=== PATIENT | female | born 1965 | race Caucasian/White ===

== ENCOUNTER 2020-04-23 09:49 | Inpatient (IN) ==
--- NOTE | 2020-04-13 18:05 | History and Physical Report ---
DATE OF ADMISSION: 04/23/2020 CHIEF COMPLAINT: Large pelvic mass, episodes of postmenopausal bleeding. HISTORY OF PRESENT ILLNESS: The patient is a 54-year-old 2, para 2. General health is good. She stopped having regular periods about 4 years ago and recently has experienced several episodes of heavy bleeding. She was seen with these complaints in my office and she had an obviously enlarged fibroid uterus. Her FSH numbers indicated she was in early menopause. Her hemoglobin was good. Her pelvic exam revealed a 14-15 week size uterus. Ultrasound revealed 16.8 cm x 8.7 cm x 10.1 cm multiple fibroid uterus, endometrial stripe could not be visualized. Presently being scheduled for a total abdominal hysterectomy and bilateral salpingo-oophorectomy. ALLERGIES: No known drug allergies. PAST SURGICAL HISTORY: She has had 2 C-sections. PAST MEDICAL HISTORY: She has seasonal allergies. SOCIAL HISTORY: She was a smoker, quit 13 years ago. No history of excessive alcohol intake. She is employed. FAMILY HISTORY: She has 2 children in good health. Mother at 84, complications of dementia. Father at age 57 of unknown causes. Three brothers and three sisters. One brother in his 50s with some type of stomach problem. One sister 60 and is on dialysis. REVIEW OF SYSTEMS: HEAD: No symptoms of frequent or severe headaches. EYES: No symptoms of blurred vision or double vision. EARS: No symptoms of frequent ear infection or difficulty hearing. NOSE: No symptoms of frequent nosebleeds or difficulty breathing through her nose. PHYSICAL EXAMINATION: GENERAL: Well-developed, well-nourished 54-year-old white female, alert, oriented x3 and cooperative, in no acute distress, appears her stated age. EYES: Conjunctivae are pink. Sclerae white, no evidence of jaundice. EARS, NOSE AND THROAT: Had normal light reflex bilaterally. NOSE: Had normal mucosa. Septum is midline. There were no polyps. THROAT: No erythema or evidence of infection. Teeth are in good state of repair. HEAD: Normocephalic, normal distribution of hair. NECK: Supple. Trachea midline. Thyroid is not enlarged. There is no adenopathy appreciated. Both carotids are of good intensity. CHEST: Clear to auscultation and percussion. Wheezes, rales or rhonchi appreciated. BREASTS: Normal. ABDOMEN: Revealed a well-healed midline scar with a lot of puckering. PELVIC: Revealed a normal-appearing cervix. There was a 15-16 weeks firm mass in the pelvis consistent with multiple fibroids. MUSCULOSKELETAL: Revealed no calf tenderness. IMPRESSIONS OF THIS CASE: Status post section, history of seasonal allergies, postmenopausal bleeding, symptomatic fibroid uterus. [facility]
--- NOTE | 2020-04-19 09:04 | Anesthesiology Consultation ---
Date of Service April 19, 2020 Assessment & Plan (1) Encounter for pre-operative examination: COVID Status: As of 04/16 nurse assessment, patient denies travel to endemic area, known exposure/sick contacts, or symptoms of COVID19. Preoperative COVID19 testing completed 04/19 at [facility]. Patient very hypertensive on exam at [facility]. She is visibly anxious and tachycardic as well. No symptoms from hypertension (denies FERNANDEZ/blurred vision/seeing spots/dizziness). Case d/w Dr. Du. Patient's surgery is imminent, scheduled for 04/23. Patient does not have an established primary care provider, and even if she were to be started on anti-hypertensives between now and surgery, likely would have little effect in such a short time. Will attempt to schedule patient with a PCP but if not able to do so prior to surgery, OK to proceed and will manage hypertension perioperatively. Part of patient's HTN seems anxiety-related, and much of her anxiety is re: being alone AM DOS as Japanese is her second language. Spoke to Eliu in [facility] -- OK for family member to accompany patient DOS. Patient made aware, and OR notified. Patient established care with PCP on 04/20 ([facility]). HTN felt most due to white coat syndrome. Patient to purchase BP cuff and track BP at home and follow up with PCP at a later date. Chart Review Chart Review: Acceptable Risk for Surgery and Patient seen in Pre Admission Testing Teaching & Discussion Instructed NPO after midnight before surgery, except medications with 15 cc of water. Medication instructions provided according to the [facility] guidelines. History Surgery Operation Date: 04/23/20 11:25 Proposed Procedures p Total Abdominal Hysterectomy, Bilateral Salpingo Oophorectomy - Jay Zuniga MD Height/Weight Height: 5 ft 1 in Weight: 60.4 kg Allergies Allergy/AdvReac Type Severity Reaction Status Date / Time No Known Allergies Allergy Verified 04/14/20 16:07 Medications Home Medications Medication Instructions Recorded Confirmed Last Taken No Known Home Medications 04/14/20 04/20/20 Unknown Past Medical History Medical History Essential (primary) hypertension Significantly hypertensive on exam at [facility], but patient is visibly anxious. Arranged for patient to establish care with a PCP prior to surgery--no antihypertensives initiated, HTN felt mostly 2/2 'white coat HTN.' Patient to track BP at home and f/u with PCP after surgery. No known health problems Seasonal allergies Exercise / Class Metabolic Activity II 4-5 Yardwork/Stairs/Walk up hill Past Family History Family History (Updated 04/20/20 @ 14:56 by Bindu Pitt) Family/Other No problems noted. Brother No problems noted. Sister Diabetes Kidney disease Denies family history of Ovarian cancer Prostate cancer Myocardial infarction Breast cancer Colorectal cancer Past Surgical History Surgical History (Updated 04/20/20 @ 14:55 by Bindu Pitt) History of section X 2 1989, 1998 Past Anesthesia History No Hx of Anesthesia Complications and No Family Hx of Anesthesia Complications History of PONV No Hx of PONV and No Hx of Motion Sickness Social History Smoking Status: Former smoker Do You Dip or Chew Tobacco: No Smoking End Date: QUIT 2006 Hx Alcohol Use: No Hx Substance Use: No Review of Systems Pt denies any recent chest pain, shortness of breath, palpitations, cough, fever or URI. Physical Exam Vital Signs BP: 191/127 pt states she is very anxious. Rpt 5 mins later 194/112. Pt asymptomatic. P: 103bpm SPO2: 98% RA T: 98.4F R: 16 ENMT Mouth: + dental bridge (upper front ~ 8 teeth), + poor dentition (some broken, some missing) and + chipped teeth (several broken teeth) Thyromental Distance: > or= 3.5 Finger Breadths (4) Mallampati Class: III Neck normal visual inspection; neck extension not limited Respiratory normal respiratory effort Auscultation: lungs clear to auscultation bilaterally Cardiovascular Rate/Rhythm: regular rhythm and + tachycardic Heart Sounds: no murmur Extremities: no edema Testing Laboratory Results 04/19/20 09:33 04/19/20 09:18 PT 10.3 Seconds (9.0-12.0) 04/19/20 09:33 INR 1.0 (0.9-1.1) 04/19/20 09:33 APTT 27.9 Seconds (21.0-31.0) 04/19/20 09:33 Blood Type B Positive 04/19/20 09:33 Antibody Screen NEGATIVE 04/19/20 09:33 Electrocardiogram Date: 04/19/20 Findings: + SUKHJINDER @ (76bpm)
[2020-04-19 10:12] LABS: Basophils # (auto) 0.06 K/uL (0-0.2); Eosinophils # (auto) 0.27 K/uL (0-0.5); Eosinophils % (auto) 4.7 %; Hematocrit (blood only) 43.5 % (37-47); Hemoglobin 14.6 g/dL (12.0-16.0); Immature Granulocytes # (auto) 0.01 K/uL (0.00-0.02); Immature Granulocytes % (auto) 0.2 %; Lymphocytes # (auto) 2.44 K/uL (1.2-3.4); Lymphocytes % (auto) 42.5 %; Mean Corpuscular Hemoglobin 28.1 pg (25-34); Mean Corpuscular Hgb Conc 33.6 g/dL (32-36); Mean Corpuscular Volume 83.7 fL (80-100); Mean Platelet Volume 10.3 fL (7.4-10.4); Monocytes # (auto) 0.29 K/uL (0.11-0.59); Monocytes % (auto) 5.1 %; Neutrophils # (auto) 2.67 K/uL (1.4-6.5); Neutrophils % (auto) 46.5 %; Platelet Count 232 K/uL (130-400); RDW Standard Deviation 38.9 fL (36.4-46.3); White Blood Count 5.74 K/uL (4.8-10.8)
[2020-04-19 10:19] LABS: BUN Creatinine Ratio 11.5 (10-20); Calcium 9.2 mg/dl (8.5-10.1); Creatinine Clr Calc Pharmacy 68.7 ml/min; Est GFR (Non-African American) 86.3; Potassium 3.7 mmol/L (3.5-5.1)
[2020-04-19 10:24] LABS: Partial Thromboplastin Time 27.9 Seconds (21.0-31.0); Prothrombin Time 10.3 Seconds (9.0-12.0)
--- NOTE | 2020-04-19 11:50 | Electrocardiogram Report ---
Test Reason : Blood Pressure : / mmHG Vent. Rate : 090 BPM Atrial Rate : 090 BPM P-R Int : 150 ms QRS Dur : 070 ms QT Int : 348 ms P-R-T Axes : 075 065 075 degrees QTc Int : 425 ms Normal sinus rhythm Normal ECG No previous ECGs available Confirmed by Terry Berry ([id number]) on 04/19/2020 11:50:05 AM Referred By: Jay Zuniga Confirmed By:Terry Berry
[~2020-04-23 09:49] MED LIST: LR 15ML/HR IV SCH; cefOXitin 2,000 MG in DEXTROSE 5% 50 ML IV SCH
--- NOTE | 2020-04-23 10:53 | History & Physical Bridge Note ---
Date of Service April 23, 2020 History & Physical Bridge Note I have examined the patient, reviewed the History & Physical and in the interval since the performance of the History & Physical I have noted the following changes of clinical significance: no changes noted
[2020-04-23] MEDS ORDERED: fentaNYL citrate 100 MCG/2 ML VIAL ONE (11:34)
[2020-04-23] MEDS ORDERED: ONDANSETRON INJ 2 MG/ML 2 ML VIAL ONE (11:34)
[2020-04-23] MEDS ORDERED: ROCURONIUM BROMIDE 10 MG/ML 5 ML VIAL IV ONE (11:34)
[2020-04-23] MEDS ORDERED: PROPOFOL IV EMULSION 10 MG/ML 20 ML VIAL IV ONE (11:34)
[2020-04-23] MEDS ORDERED: LIDOCAINE HCL 2% 2 ML VIAL/AMP(20MG/ML) INFIL ONE (11:34)
[2020-04-23] MEDS ORDERED: MIDAZOLAM HCL 1 MG/ML 2ML VIAL ONE (11:35)
[2020-04-23] MEDS ORDERED: MoRPHine SULFATE PF 1 MG/ML 10 ML AMP/VIAL ONE (11:53)
[2020-04-23] MEDS ORDERED: PROMETHAZINE HCL 12.5 MG in SODIUM CHLORIDE 0.9% 50 ML IV PRN (12:41)
[2020-04-23] MEDS ORDERED: LACTATED RINGER'S 500 ML IV PRN (12:41)
[2020-04-23] MEDS ORDERED: ONDANSETRON INJ 2 MG/ML 2 ML VIAL IV PRN (12:41)
[2020-04-23] MEDS ORDERED: MoRPHine SULFATE PF 1 MG/ML 10 ML AMP/VIAL INT SPINAL ONE (12:41)
[2020-04-23] MEDS ORDERED: NALOXONE HCL 0.4 MG/1 ML VIAL/CARP IV PRN (12:41)
[2020-04-23] MEDS ORDERED: NALBUPHINE HCL INJ 10 MG/ML AMP IV PRN (12:41)
[2020-04-23] MEDS ORDERED: NALOXONE HCL 0.08 MG in SYRINGE 1.8 ML IV PRN (12:41)
[2020-04-23] MEDS ORDERED: KETOROLAC 30 MG/ML VIAL IV PRN (12:41)
[2020-04-23] MEDS ORDERED: ePHEDrine sulfate 50 MG/ML AMP IV PRN (12:41)
[2020-04-23] MEDS ORDERED: NALOXONE HCL 1 MG in SODIUM CHLORIDE 0.9% 1000ML 1,000 ML IV PRN (12:41)
[2020-04-23] MEDS ORDERED: DiphenhydrAMINE HCL 50 MG/ML VIAL IV PRN (12:41)
[2020-04-23] MEDS ORDERED: PHENYLEPHRINE HCL 10 MG/ML VIAL ONE (12:43)
[2020-04-23] MEDS ORDERED: PHENYLEPHRINE 100MCG/ML 5ML SYR ONE (12:43)
[2020-04-23] MEDS ORDERED: DC INTRASPINAL MORPHINE SCH (12:45)
[2020-04-23] MEDS ORDERED: SODIUM CHLORIDE 0.9% 1000ML 1,000 ML IV SCH (12:45)
[2020-04-23] MEDS ORDERED: NO NARCOTICS OR SEDATIVES SCH (12:45)
[2020-04-23] MEDS ORDERED: DEXAMETHASONE SOD INJ 4 MG/ML VIAL ONE (12:46)
[2020-04-23] MEDS ORDERED: NEOSTIGMINE METHYLSULFATE 5 MG/5 ML SYR ONE (14:01)
[2020-04-23] MEDS ORDERED: GLYCOPYRROLATE 0.2 MG/ML VIAL ONE (14:01)
[2020-04-23] MEDS ORDERED: SENNA 8.6 MG TAB PO PRN (14:38)
[2020-04-23] MEDS ORDERED: bisacodyL 10 MG SUPP PR PRN (14:38)
[2020-04-23] MEDS ORDERED: MAGNESIUM HYDROXIDE SUSP 30 ML UDC PO PRN (14:38)
--- NOTE | 2020-04-23 14:38 | Post Operative Brief Note ---
Immediate Post Op Note v1 Date of Surgery April 23, 2020 Pre & Post Diagnosis Operation Date: 04/23/20 11:25 Pre-Op Diagnosis: Postmenopausal bleeding and symptomatic fibroid uterus. Post-Op Diagnosis: Postmenopausal bleeding and symptomatic fibroid uterus. I identified the patient and participated in the time-out.: Yes Procedure Operation Date: 04/23/20 11:25 Actual Procedures p Total Abdominal Hysterectomy, Bilateral Salpingo Oophorectomy(Not Applicable) - Jay Zuniga MD Surgeon Jay Zuniga MD Needle Grinder Dr. Corbett Estimated Blood Loss 100 Findings Consistent with Post-Op Diagnosis large fibroid uterus bladder adhesions Fluids 1500 ml Specimens fibroid uterus both tubes and ovaries Drains Romero Catheter (16 fro romero catheter inserted by Kylie Watkins without difficulty. Clear yellow urine for return.) and Other (rasat walker with safety pin in the vagina) Anesthesia Type MAC Spinal Regional Complications none Disposition Accompanied Patient To Recovery: No Disposition: Recovery Room
--- NOTE | 2020-04-23 14:55 | Anesthesiology Progress Note ---
Date of Service April 23, 2020 Anesthesia Post Procedure Vital Signs Vital Signs: Temp Pulse Pulse Resp BP Pulse Ox 04/23/20 14:45 81 16 123/71 100 04/23/20 14:38 37.6 C H 87 16 131/74 100 04/23/20 10:23 37.2 C 101 H 18 180/106 H 98 Transfer of Care Handoff Completed per policy Notes Mental Status: alert / awake / arousable Patient Amnestic to Procedure: Yes Nausea / Vomiting: adequately controlled Pain: adequately controlled Airway Patency, RR, SpO2: stable & adequate BP & HR: stable & adequate Hydration State: stable & adequate Neuraxial Anesthesia: was administered and sensory block is resolving Anesthetic Complications: no major complications apparent
--- NOTE | 2020-04-23 16:30 | Operative Report (OR) ---
DATE OF OPERATION: 04/23/2020 PROCEDURE: Total abdominal hysterectomy, bilateral salpingo-oophorectomy. INDICATIONS FOR SURGERY: Large symptomatic fibroid uterus. PREOPERATIVE DIAGNOSIS: Symptomatic fibroid uterus. POSTOPERATIVE DIAGNOSIS: Symptomatic fibroid uterus, pathology pending. SURGEON: Dr. Zuniga. CONSTRUCTION CREW MEMBER: Dr. Corbett. ESTIMATED BLOOD LOSS: 100 mL. ANESTHESIA: Spinal narcotics and general. OPERATIVE FINDINGS AND PROCEDURE: The patient was brought to the OR table, correctly identified by armband and conversation. Spinal narcotics was administered. She was then intubated. Then, Pardo catheter was inserted aseptically in the bladder. Compression stockings were applied. A vaginal prep was done. The abdomen was prepped with an alcohol based sterilizing solution over a previous midline incision. After draping the patient in usual sterile fashion, I excised the midline incision from the symphysis to the umbilicus. I cut out the scar and then took the incision down to the fascia, incised the fascia down to the pelvic brim and then up towards the umbilicus. Recti muscles were . Peritoneum was carefully raised and entered. Once upon entering the uterus, a large fibroid uterus was encountered. The incision was just barely big enough for the tumor to fit through. We then placed an O'Michael-O'Carlson self-retraining retractor in the incision and used several moist laparotomy packs to pack the bowels away from the fibroid uterus. I then carefully identified the blood supply to the ovary on both the right and left side, identified the infundibulopelvic ligaments going to the ovary and then doubly ligated them with a chromic tie, tagging the distal tie and cutting the proximal tie. I did this by identifying a clear window through the peritoneum. I then clamped the round ligaments on either side, doubly ligated them, cut them and made an incision above the vesicouterine fold. There was some scarring due to the fact that the patient has had 2 previous C-sections, required a little bit of additional dissection to get the bladder down and get down to the cervix. I then punched through the broad ligament on both sides posteriorly. I clamped it with a Melanie, then cut the ovary and tube away from the pelvic wall and then ligated with the Melanie on either side for additional hemostasis, then skeletonized the uterine vessels on either side and then clamped at the level of the fundus and the cervix. This was done with 2 curved Kochers and was cut with a stump. I then doubly ligated with chromic gut suture. I then continued to advance the bladder out of the operative field, slid off the cervix with a curved Frank to cut the cardinal ligaments, cut them with a stump and then ligated them with a chromic gut suture which we tied in the same knot as the uterine vessels. This was done in 3 steps because of the length of the cardinal ligaments. Then the cervix was shelled out thus excising the specimen consisting of both tubes, both ovaries, large fibroid uterus and cervix. The angles of the vaginal cuff were suture ligated to the cardinal ligaments on both sides with a chromic gut suture. Then the anterior and posterior vaginal cuff was approximated on the angles ligating them into the stumps of the cardinal ligament. The mid portion of the tube was whipstitched open with a continuous Vicryl suture. A Enmanuel drain with a safety pin was placed into the vagina, the other end into the cul-de-sac. We then brought the round ligaments down, tied them to the stumps of the cardinal ligaments and the ovarian stumps to elevate the vaginal cuff. I then reperitonealized the peritoneum, burying the stumps with the peritoneum. I went from the right infundibulopelvic to the middle and then from the left infundibulopelvic to the middle and then tied the 2 chromic sutures together. Hemostasis was checked for, was excellent. The pelvis was cleansed of all blood clots and debris. Packs were removed. Count was good. Then a careful anatomical approximation of the anterior abdominal wall was performed. The mattress suture was used to approximate the peritoneum and then a heavy suture of PDS was used to approximate the fascia. One of the sutures anchored at the bottom of the defect, the other suture anchored at the top of the defect with wide lateral bites running from the bottom up to the middle, from the top down to the middle, then I tied the 2 sutures together. The subQ was approximated with interrupted plain and the skin edges were approximated with staple clips. The patient tolerated these procedures well, left the OR in good condition. Urine was clear and estimated blood loss was 100 mL. I attest to the content of the Intraoperative Record and any orders documented therein. Any exception s are noted below.
[2020-04-23] MEDS: MEPERIDINE HCL 25 MG/ML CARP/VIAL IV PRN (17:07)
[2020-04-23] MEDS: D5W AND LACTATED RINGERS 1,000 ML IV SCH (17:08)
--- NOTE | 2020-04-23 17:31 | Anesthesiology Progress Note ---
Date of Service April 23, 2020 Anesthesia Post Procedure Vital Signs Vital Signs: Temp Pulse Pulse Resp BP Pulse Ox 04/23/20 15:25 36.9 C 88 16 141/80 H 98 04/23/20 15:15 36.9 C 76 16 141/81 H 97 04/23/20 15:05 88 16 143/75 H 92 04/23/20 14:55 90 16 143/83 H 99 04/23/20 14:45 81 16 123/71 100 04/23/20 14:38 37.6 C H 87 16 131/74 100 04/23/20 10:23 37.2 C 101 H 18 180/106 H 98 Transfer of Care Handoff Completed per policy Notes Mental Status: alert / awake / arousable and participated in evaluation Patient Amnestic to Procedure: Yes Nausea / Vomiting: adequately controlled Pain: adequately controlled Airway Patency, RR, SpO2: stable & adequate BP & HR: stable & adequate Hydration State: stable & adequate Anesthetic Complications: no major complications apparent and Pt Satisfied with anesthetic care
[2020-04-24] MEDS: D5W AND LACTATED RINGERS 1,000 ML IV SCH (01:00)
[2020-04-24] MEDS: IBUPROFEN 600 MG TAB PO PRN ×3 (01:00→21:30)
[2020-04-24] MEDS: MEPERIDINE HCL 25 MG/ML CARP/VIAL IV PRN (02:18)
[2020-04-24 05:43] LABS: Basophils # (auto) 0.01 K/uL (0-0.2); Basophils % (auto) 0.1 %; Hematocrit (blood only) 37.5 % (37-47); Immature Granulocytes # (auto) 0.04 K/uL (0.00-0.02); Immature Granulocytes % (auto) 0.3 %; Lymphocytes # (auto) 1.56 K/uL (1.2-3.4); Lymphocytes % (auto) 11.1 %; Mean Corpuscular Volume 84.3 fL (80-100); Monocytes # (auto) 1.06 K/uL (0.11-0.59); Monocytes % (auto) 7.5 %; Neutrophils # (auto) 11.44 K/uL (1.4-6.5); Platelet Count 204 K/uL (130-400); RDW Coefficient of Variation 13.2 % (11.5-14.5); RDW Standard Deviation 40.1 fL (36.4-46.3); Red Blood Count 4.45 M/uL (4.2-5.4); White Blood Count 14.11 K/uL (4.8-10.8)
--- NOTE | 2020-04-24 06:11 | Obstetrical Progress Note ---
Date of Service April 24, 2020 Assessment & Plan Admission and Anticipated Discharge Date Admission Date: April 23, 2020 Physical Exam Physical Exam: abdomen soft and non tender incision is clean and dry bandage removed good bowel sounds urine out put good vaginal bleeding scant no calf tenderness Results & Data ([facility]) Vital Signs (Past 12 Hours) Vital Signs Temp Pulse Resp BP Pulse Ox 04/24/20 05:30 16 94 04/24/20 04:40 16 94 04/24/20 03:50 36.7 C 79 18 130/75 97 04/24/20 02:20 18 95 04/24/20 01:30 16 95 04/24/20 00:01 16 95 04/23/20 23:10 36.5 C 94 H 20 145/83 H 97 04/23/20 22:33 16 94 04/23/20 21:35 18 97 04/23/20 20:00 18 98 04/23/20 19:40 36.6 C 89 18 146/88 H 97 04/23/20 18:50 36.7 C 92 H 18 146/81 H 97
--- NOTE | 2020-04-24 06:12 | Obstetrical Progress Note ---
Date of Service April 24, 2020 Assessment & Plan Admission and Anticipated Discharge Date Admission Date: April 23, 2020 Physical Exam Physical Exam: hgb 12.0 post op Results & Data ([facility]) Vital Signs (Past 12 Hours) Vital Signs Temp Pulse Resp BP Pulse Ox 04/24/20 05:30 16 94 04/24/20 04:40 16 94 04/24/20 03:50 36.7 C 79 18 130/75 97 04/24/20 02:20 18 95 04/24/20 01:30 16 95 04/24/20 00:01 16 95 04/23/20 23:10 36.5 C 94 H 20 145/83 H 97 04/23/20 22:33 16 94 04/23/20 21:35 18 97 04/23/20 20:00 18 98 04/23/20 19:40 36.6 C 89 18 146/88 H 97 04/23/20 18:50 36.7 C 92 H 18 146/81 H 97
[2020-04-24] MEDS ORDERED: MEPERIDINE HCL 50 MG/ML CARP IV PRN (06:41)
[2020-04-24] MEDS ORDERED: ONDANSETRON INJ 2 MG/ML 2 ML VIAL IV PRN (06:41)
[2020-04-24] MEDS ORDERED: KETOROLAC 30 MG/ML VIAL IV PRN (06:41)
[2020-04-24] MEDS ORDERED: PROMETHAZINE HCL 25 MG in SODIUM CHLORIDE 0.9% 50 ML IV PRN (06:41)
[2020-04-24] MEDS: OXYCODONE/ACETAMINOPHEN 5mg/325mg TAB PO PRN ×2 (17:53→21:30)
[2020-04-24] MEDS: LABETALOL HCL 100 MG TAB PO SCH ×2 (19:30→21:27)
[2020-04-25] MEDS: OXYCODONE/ACETAMINOPHEN 5mg/325mg TAB PO PRN ×3 (01:31→10:49)
[2020-04-25] MEDS: IBUPROFEN 600 MG TAB PO PRN ×3 (01:32→10:50)
[2020-04-25 06:52] LABS: Basophils # (auto) 0.06 K/uL (0-0.2); Basophils % (auto) 0.5 %; Eosinophils # (auto) 0.11 K/uL (0-0.5); Eosinophils % (auto) 0.9 %; Hematocrit (blood only) 37.8 % (37-47); Hemoglobin 11.9 g/dL (12.0-16.0); Immature Granulocytes # (auto) 0.03 K/uL (0.00-0.02); Immature Granulocytes % (auto) 0.3 %; Lymphocytes # (auto) 2.34 K/uL (1.2-3.4); Lymphocytes % (auto) 19.8 %; Mean Corpuscular Hgb Conc 31.5 g/dL (32-36); Mean Corpuscular Volume 85.7 fL (80-100); Mean Platelet Volume 10.4 fL (7.4-10.4); Monocytes # (auto) 0.89 K/uL (0.11-0.59); Monocytes % (auto) 7.5 %; Neutrophils # (auto) 8.41 K/uL (1.4-6.5); Platelet Count 210 K/uL (130-400); RDW Coefficient of Variation 13.4 % (11.5-14.5); RDW Standard Deviation 42.1 fL (36.4-46.3); Red Blood Count 4.41 M/uL (4.2-5.4); White Blood Count 11.84 K/uL (4.8-10.8)
[2020-04-25 07:50] VITALS: BP 163/83; TEMP 97.7; O2SAT 95
[2020-04-25] MEDS ORDERED: LABETALOL HCL 200 MG TAB PO SCH (09:00)
--- NOTE | 2020-04-25 10:02 | Obstetrical Progress Note ---
Date of Service April 25, 2020 Assessment & Plan Admission and Anticipated Discharge Date Admission Date: April 23, 2020 Physical Exam Physical Exam: abdomen soft and non tender incision is clean and dry passing gas no calf tenderness rasta drain with safety pin removed from the vagina ambulating well vaginal bleeding scant hgb 11.9 Results & Data ([facility]) Vital Signs (Past 12 Hours) Vital Signs Temp Pulse Resp BP BP Pulse Ox 04/25/20 07:25 36.5 C 72 18 163/83 H 95 04/25/20 03:45 36.6 C 73 14 136/85 94 04/24/20 23:30 36.6 C 73 14 157/80 H 92
[2020-04-25 10:23] VITALS: PULSE 88
--- NOTE | 2020-04-25 14:56 | Discharge Summary (DS) ---
Mrs. Morgan was admitted for symptomatic large fibroid uterus which she had several episodes of bleeding and she had a lot of pelvic pain and pressure. She was given prophylactic antibiotics. On day of admission, taken to the OR where she underwent total abdominal hysterectomy, bilateral salpingo-oophorectomy, suspension of the vaginal cuff, and the drain was placed into the cuff itself. Her bowel sounds returned promptly. Her postoperative hemoglobin stabilized at 12. She was eating a full meal the following day, on day #2 she was ambulating well, eating well. Her incision was clean and dry. She had no temperature. A Enmanuel drain with a safety pin was removed and she was given prescriptions for Percocet and Motrin for pain, labetalol 200 mg for blood pressure and estradiol 1 mg for estrogen replacement. She was given the usual instructions to call if she had a temperature over 100, call if she had any heavy bleeding and to return in about a week for staple removal.
== END 2020-04-25 11:10 | disposition home or self-care (01) | DRG 743 ==
LOC: ASU 09:49 → 4N 14:38
DX: D25.9 Leiomyoma of uterus, unspecified; I10 Essential (primary) hypertension; N95.0 Postmenopausal bleeding; Z87.891 Personal history of nicotine dependence